=== PATIENT | male | born 1970 ===

== ENCOUNTER 2019-02-23 00:59 | Day surgery (SDC) | payer OTHER ==
[~2019-02-23] VITALS: Ht 172.7 cm; Wt 80.7 kg
[~2019-02-23 00:59] MED LIST: ATOR40TA24 PO; FLUT1DIS28 IH; IPRA4AER IH
--- NOTE | 2019-02-23 01:38 | LEVENE H&P ---
DATE OF ADMISSION: February 23, 2019 IDENTIFICATION/CHIEF COMPLAINT Clive is a 48-year-old gentleman with chief complaint of right hip ache and an incidental radiographic MRI finding demonstrating focal avascular necrosis. Surgery was indicated to hopefully revascularize the lesion, prevent progression and subsequent sequelae of the advanced avascular necrosis. PAST MEDICAL HISTORY Notable for remote history of DVT, history of reactive airway disease. ALLERGIES He has no known drug allergies. CURRENT MEDICATIONS 1. Combivent as needed. 2. Advair Diskus, one p.o. daily. 3. Atorvastatin 40 mg p.o. daily. PAST SURGICAL HISTORY Notable for a contralateral hip replacement, left knee scope, and left knee ACL surgery. FAMILY HISTORY Noncontributory. SOCIAL HISTORY Notable for chewing a can of tobacco per week. Drinks alcohol, one or two beers per night; denies abuse. REVIEW OF SYSTEMS Otherwise negative. PHYSICAL EXAMINATION GENERAL: This is a well-developed, well-nourished male who appears stated age. HEENT: Normocephalic, atraumatic. NECK: Supple. LUNGS: Clear. HEART: Regular. ABDOMEN: Soft. ORTHOPEDIC: Right hip has unrestricted range of motion, normal strength. Skin is intact. Calves nontender. Neurovascular function intact. RADIOGRAPHIC STUDIES MRI demonstrates a focus of avascular necrosis within the superior central to lateral aspect of the femoral head. This is not diffuse, as it was in the contralateral hip. There is no subchondral collapse. ASSESSMENT Right hip Ficat stage I avascular necrosis. PLAN Discussed the options with Clive, including continued observation, medical management with a bisphosphonate, or core decompression to minimize risk of progression. He would like to proceed with core decompression after extensively discussing the options. The nature of the procedure, the risks, benefits, the anticipated rehabilitative course were outlined. The risks of the procedure include , major medical or anesthetic complication, infection, neurovascular injury, progression of avascular necrosis, eventual post-traumatic arthritis, fracture through the stress riser from core decompression, need for additional surgery, and other unforeseen. He understands and wishes to proceed. A signed permit is placed in the chart. No guarantees are given or implied. MONCHO
[2019-02-23] MEDS: NORMOSOL R SOLN(*) 1000 ML BAG 1,000 ML IV PRN ×2 (12:20→13:54)
[2019-02-23] MEDS ORDERED: FAMOTIDINE 20 MG TAB PO ONE (14:00)
[2019-02-23] MEDS ORDERED: MIDAZOLAM 2 MG/2 ML VIAL IVP PRN (14:00)
[2019-02-23] MEDS ORDERED: ceFAZolin(*) 2GM/D5W 50ML 50 ML IVPB ONE (14:00)
[2019-02-23] MEDS ORDERED: LIDOCAINE/SOD BICARB 8.4% SYR ID ONE (14:00)
[2019-02-23] MEDS ORDERED: CELECOXIB 200 MG CAP PO ONE (14:00)
[2019-02-23] MEDS ORDERED: ROPIVACAINE 0.2% 20 ML VIAL ONE (15:55)
[2019-02-23] MEDS ORDERED: ONDANSETRON 4 MG/2 ML VIAL ONE (16:42)
[2019-02-23] MEDS ORDERED: fentaNYL CITR 100 MCG/2 ML AMP ONE (16:42)
[2019-02-23] MEDS ORDERED: DEXAMETHASONE SOD PHOS 10MG/ML ONE (16:42)
[2019-02-23] MEDS ORDERED: PROPOFOL EMUL(*) 10MG/ML 20 ML 80 ML ONE (16:42)
[2019-02-23] MEDS ORDERED: KETAMINE HCL-NS 50 MG/5 ML SYR ONE (16:52)
[2019-02-23] MEDS ORDERED: PROPOFOL EMUL(*) 10MG/ML 20 ML 20 ML ONE (16:59)
[2019-02-23] MEDS ORDERED: HYDROmorphone HCL 2 MG/ML SDV ONE (17:30)
--- NOTE | 2019-02-23 17:54 | RADIOLOGY IMAGING REPORT ---
FACILITY: [facility] PATIENT NAME: Clive Lucero : 1970 MR: [id number] V: [id number] EXAM DATE: ORDERING PHYSICIAN: SHAKIRA COOLEY TECHNOLOGIST: Location: [facility] [place] Patient: Clive Lucero : 1970 Visit/Account:[id number] Date of Sevice: 02/23/2019 Technique: C-ARM FLUORO 1 HR HISTORY: RIGHT HIP CORING Comparison studies: None FINDINGS: Operative imaging was obtained of the right hip. Surgical instrumentation traverses the ri ght femoral neck Air Kerma: 7.5 mGy IMPRESSION: 1. Operative imaging as above. Please see procedural report for complete details. Report Dictated By: Sarath Vega DO at 02/23/2019 5:46 PM Report E-Signed By: Sarath Vega DO at 02/23/2019 5:47 PM WSN:[id number]
[2019-02-23] MEDS ORDERED: ASPI-757 PO (18:14)
[2019-02-23] MEDS ORDERED: HYDR-654 PO (18:18)
[2019-02-23] MEDS ORDERED: APAP/HYDROCODONE 325/7.5 TAB ONE (18:20)
[2019-02-23 18:45] VITALS: BP 134/90
[2019-02-23 19:00] VITALS: BP 141/103
[2019-02-23 19:15] VITALS: BP 145/93
[2019-02-23 19:20] VITALS: BP 128/93
--- NOTE | 2019-02-24 11:20 | OPERATIVE REPORT 1 ---
EVENT DATE: February 23, 2019 SURGEON: Nolan Olguin MD ANESTHESIOLOGIST: Ibrahima Perez MD ANESTHESIA: General. BINGO WORKER: KANDI Lawson PREOPERATIVE DIAGNOSIS Right hip Ficat stage I avascular necrosis. POSTOPERATIVE DIAGNOSIS Right hip Ficat stage I avascular necrosis. PROCEDURE PERFORMED Right hip core decompression. ESTIMATED BLOOD LOSS Minimal. DRAINS None. SPECIMENS None. COMPLICATIONS None apparent. IMPLANTS USED None. INDICATIONS Clive is a 48-year-old gentleman who initially presented with severe left hip pain. He had global AVN and collapse and underwent hip arthroplasty. At the time of his index MRI an incidental localized lesion was noted in the pkbctnd-zl-ogedytbr femoral head. He does have some aching in his hip and no other major symptoms. Core decompression is indicated to revascularize the lesion, minimize risk of disease progression, and hopefully preserve this hip. DESCRIPTION OF PROCEDURE The patient was taken to the operating room and placed supine on the operating table. General anesthesia was induced and antibiotics were administered IV. The patient was positioned onto the fracture table supine. Contralateral well leg was placed in a well-padded leg montero. Abducted external rotator out of the way. The ipsilateral foot is placed into a well-added foot-plate traction. No traction was applied. This was just used for positional control. The femur is rotated so that the neck is parallel to the floor and then biplanar fluoroscopic imaging confirmed satisfactory visualization of the hip. The hip was then sterilely prepped and draped with a shower curtain in the usual sterile fashion as per hip pinning. A free guidewire was used to maria luisa the alignment using the AP view and then a small stab wound 1 cm in length was made about an 1-1/2 inch above this. Blunt dissection was carried down to the deep fascia, through the fascia to the lateral cortex of the femur and then a guidepin was brought onto the lateral cortex. Care was taken to keep this well above the lesser trochanter to minimize risk of a stress fracture that might cause an iatrogenic fracture. The guidepin was then advanced with biplanar fluoroscopic imaging up into the lesion. The first pass is central and somewhat posterior. This is advanced just short of the subchondral plate. After confirming ideal placement, a 6.5 drill was used to drill using biplanar fluoroscopic imaging, just short of the tip of the pin to make sure this penetrates the sclerotic bone and the avascular lesion. Next, using the same entry point and the guidepin in reverse, this was advanced in a more superior and xyecxon-po-adetkjfs direction to penetrate the remainder of the lesion. This was again advanced just short of the subchondral plate and the 6.5 bit was advanced over the pin very slowly and carefully. The hard bone at the lesion is palpated and this drill-bit is stopped short of the subchondral plate. This is felt adequately decompressed and revascularizing of the lesion. The pin was removed. The surfaces were copiously lavaged. A pain cocktail was infiltrated down to the lateral cortex. The small skin incision was lavaged and closed simple froilan. Xeroform was applied, dry, sterile absorptive dressing. The patient was subsequently removed from the table, taken to his regular bed, awakened from anesthesia and taken to the recovery room in stable condition having tolerated the procedure well. The plan is weightbearing as tolerated. No high impact activities and serial radiographic monitoring. [facility]
== END 2019-02-23 18:30 | disposition home or self-care (01) ==
LOC: OR 00:59
PROVIDERS: ATTEND Orthopaedic Surgery
DX: M87.051 Idiopathic aseptic necrosis of right femur (principal); F17.220 Nicotine dependence, chewing tobacco, uncomplicated; J45.909 Unspecified asthma, uncomplicated; Z79.51 Long term (current) use of inhaled steroids; Z96.642 Presence of left artificial hip joint; Z86.718 Personal history of other venous thrombosis and embolism
CPT/HCPCS: 27299; 76000; J1100; J1170; J2250; J2405; J2704; J2795; J3010; J3490; J0690